=== PATIENT | male | born 1990 | race Two or more races ===

== ENCOUNTER 2024-02-04 21:52 | Emergency (ER) | payer OTHER, BC, SELFPAY ==
--- NOTE | ~2024-02-04 | XR_ITS ---
EXAMINATION: XR ANKLE, LEFT CLINICAL INFORMATION: injury, pain lateral left ankle COMPARISON: None available. TECHNIQUE: AP, lateral, and mortise views of the left ankle. FINDINGS: No fracture. Alignment is anatomic. No erosions. Joint spaces are maintained. Soft tissues are normal. XR/XR ankle LT min 3V IMPRESSION: Normal left ankle. Electronically signed by: Franki King MD 02/04/2024 11:43 PM EST
[2024-02-04 21:59] VITALS: BP 144/86; PULSE 63; RESP 20; TEMP 36.1; O2SAT 98; BMI 34.4
--- NOTE | 2024-02-04 22:52 | ED_ITS ---
HPI - General Adult General Chief complaint: Extremity Injury, Lower Stated complaint: left ankle,foot pain work inj Time Seen by Provider: 02/04/24 22:36 Source: patient, RN notes reviewed and old records reviewed Mode of arrival: ambulatory Limitations: no limitations History of Present Illness ED Provider: Ciaran HPI narrative: 33-year-old male who presents for left ankle pain. 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 He denies feeling any pops, or snaps. He denies tripping over anything, and did not fall. He is able to bear weight. Related Data Allergies Allergy/AdvReac Type Severity Reaction Status Date / Time amoxicillin AdvReac Hives Verified 02/04/24 22:03 Review of Systems Musculoskeletal: Musculoskeletal: Reports arthralgias, Reports joint swelling and Reports limited range of motion PMFSH Social History Social History Unable to assess alcohol history related to: Unknown Smoked in Last 30 Days: No Advance Directives: No Advance Directives Information Provided: Yes Do you have a plan to hurt others: No Plan Physical Exam ED Vital Signs: Vital Signs - 24 hr 02/04/24 21:59 02/04/24 23:01 02/04/24 23:02 Temperature 97.0 F 98.7 F 98.7 F Pulse Rate 63 80 80 Respiratory Rate 20 16 16 Blood Pressure 144/86 H 160/85 H 160/85 H Pulse Oximetry 98 95 95 Oxygen Delivery Method Room Air Room Air Room Air BMI result Body Mass Index 34.4 Const General: healthy appearing, comfortable, no acute distress, alert and awake Nutritional Appearance: well nourished Orientation/consciousness: patient oriented x3 HENMT Head: Yes normocephalic and Yes atraumatic Eyes Eyelids: Yes eyelids normal Conjunctivae: conjunctivae normal Sclerae: sclerae normal Corneas: corneas normal Pupils: Equal, round and reactive pupils present EOM: EOMs intact bilaterally Neck Neck: Yes full ROM Resp Effort & Inspection: normal respiratory effort, able to speak in complete sentences and not labored Skin General skin exam: elasticity normal Neuro General: patient oriented x3 Cranial nerves: Yes Equal, round and reactive pupils present and Yes Bilaterally intact EOM present Cognition (Neuro): normal cognition Extrem Other: Mild edema noted to the dorsal-lateral aspect of the left foot. No erythema, ecchymoses, or open wounds present. Patient has full range of motion of the ankles bilaterally. Pedal pulses and sensation intact. Patient has mild tenderness to palpation on the lateral aspect of the left ankle. 5/5 strength with plantar flexion and dorsiflexion of the lower extremities bilaterally Left lower extremity: full ROM; no cyanosis Medical Decision Making Medical Decision Making MDM Narrative: 33-year-old male presents for evaluation of a minor left ankle injury. X-ray is negative for fracture/dislocation. I have a low suspicion for significant tendon injury. Patient be discharged with symptomatic treatment. Differential Diagnosis Ankle sprain Fracture Tendonitis Soft tissue injury Independent Interpretation I performed an independent interpretation of an: Plain X-Ray Interpretation: No obvious fracture of the left ankle. No displacement, unremarkable ankle x- ray Discharge Plan Discharge Clinical Impression: Ankle sprain and strain Patient Disposition: Home, Self-Care Instructions: Ankle Sprain (ED) Additional Instructions: Your x-ray did not show any evidence of fracture. Use ibuprofen/Tylenol for pain. Elevate the leg above your heart while resting. Apply ice every 4 hours for 10-15 minutes Interventions: ED Discharge Assessment Last Done: 02/04/24 23:02 Discharge Date/Time: 02/04/24 23:02 Print Language: Romanian
[2024-02-04 23:01] VITALS: BP 160/85; PULSE 80; RESP 16; TEMP 37.1; O2SAT 95
[2024-02-04 23:02] VITALS: BP 160/85; PULSE 80; RESP 16; TEMP 37.1; O2SAT 95
== END 2024-02-04 23:02 | disposition home or self-care (01) ==
PROVIDERS: Emergency Provider Internal Medicine
DX: S93.402A Sprain of unspecified ligament of left ankle, initial encounter (principal); S96.912A Strain of unspecified muscle and tendon at ankle and foot level, left foot, initial encounter; Y35.891A Legal intervention involving other specified means, law enforcement official injured, initial encounter; Y93.02 Activity, running; Y92.410 Unspecified street and highway as the place of occurrence of the external cause; Y99.9 Unspecified external cause status
CPT/HCPCS: 73610; 99283; 99284